=== PATIENT | female | born 1965 | race Caucasian/White ===

== ENCOUNTER 2016-10-12 06:15 | Day surgery (SDC) | payer OTHER, BC ==
[2016-10-12] MEDS ORDERED: LACTATED RINGERS 1,000 ML ONE (06:26)
[2016-10-12] MEDS ORDERED: PROPOFOL 20 ML IV ONE ×2 (06:26→07:49)
[2016-10-12] MEDS ORDERED: IV START KIT ONE (06:26)
== END 2016-10-12 08:20 | disposition home or self-care (01) ==
LOC: SDC 06:15
PROVIDERS: ATTEND Family Medicine
PROC: 0DJD8ZZ Inspection of Lower Intestinal Tract, Via Natural or Artificial Opening Endoscopic (ICD-10-PCS; principal; 2016-10-12)
DX: Z12.11 Encounter for screening for malignant neoplasm of colon (principal); E11.9 Type 2 diabetes mellitus without complications; E78.5 Hyperlipidemia, unspecified; I10 Essential (primary) hypertension; F17.210 Nicotine dependence, cigarettes, uncomplicated; E55.9 Vitamin D deficiency, unspecified; Z79.82 Long term (current) use of aspirin
CPT/HCPCS: 45378; J7120